=== PATIENT | male | born 1945 | race Two or more races ===

== ENCOUNTER 2021-06-12 05:35 | Day surgery (SDC) | payer OTHER ==
[~2021-06-12 05:35] MED LIST: LOTREL 5-20 MG1 CAP PO; OMEPRA PO; SUPER B-50 COM1 EACH PO
[2021-06-12] MEDS ORDERED: PERCOCET 5-3251 EACH PO (10:37)
[2021-06-12] MEDS ORDERED: RECTICARE30 GM TOP (10:38)
== END 2021-06-12 18:30 | disposition home or self-care (01) ==
LOC: CIR.AMB 05:35
PROVIDERS: ATTEND Surgery
DX: D01.3 Carcinoma in situ of anus and anal canal (principal); Z20.822 Contact with and (suspected) exposure to COVID-19

== ENCOUNTER 2022-07-02 06:17 | Day surgery (SDC) | payer OTHER ==
[~2022-07-02] VITALS: Ht 167.6 cm; Wt 83.9 kg
[~2022-07-02 06:17] MED LIST changes: +PERCOCET 5-3251 EACH PO; +RECTICARE30 GM TOP
[2022-07-02] MEDS ORDERED: PERCOCET 5-3251 EACH PO (08:20)
[2022-07-02] MEDS ORDERED: RECTICARE30 GM TOP (08:21)
== END 2022-07-02 12:55 | disposition home or self-care (01) ==
LOC: CIR.AMB 06:17
PROVIDERS: ATTEND Surgery
DX: R85.613 High grade squamous intraepithelial lesion on cytologic smear of anus (HGSIL) (principal); I10 Essential (primary) hypertension; E78.5 Hyperlipidemia, unspecified; Z20.822 Contact with and (suspected) exposure to COVID-19